=== PATIENT | male | born 1995 | race Caucasian/White ===

== ENCOUNTER 2021-05-06 13:48 | Emergency (ER) | payer BC, OTHER, SELFPAY ==
[~2021-05-06] VITALS: Ht 167.6 cm; Wt 62.8 kg
[2021-05-06] MEDS ORDERED: LORazepam 2 MG/ML VIAL IV STA (14:00)
[2021-05-06] MEDS ORDERED: LORazepam 2 MG/ML VIAL As Ordered ONE (14:02)
[2021-05-06 18:59] VITALS: BP 116/89
== END 2021-05-06 19:00 | disposition home or self-care (01) ==
LOC: M ED 13:48
DX: F19.10 Other psychoactive substance abuse, uncomplicated (principal); F17.200 Nicotine dependence, unspecified, uncomplicated
CPT/HCPCS: 96374; 99284; J2060

== ENCOUNTER 2022-04-14 | Emergency (ER) | payer OTHER ==
[~2022-04-14] VITALS: Ht 172.7 cm; Wt 78.5 kg
[2022-04-14] MEDS ORDERED: NS 1,000 ML IV ONE (00:10)
[2022-04-14 00:31] LABS: BASO % 0.3 % (0.0-1.0); EOS # 0.1 10^3/uL (0.0-0.5); EOS % 1.5 % (0.0-3.0); HEMATOCRIT 39.2 % (42.0-52.0); HEMOGLOBIN 13.6 g/dl (13.5-17.5); LYMPH % 32.4 % (24.0-44.0); MEAN CORPUSCULAR HGB CONC 34.7 g/dl (32.0-36.5); MEAN CORPUSCULAR VOLUME 89.3 fl (80.0-96.0); MONO # 0.8 10^3/uL (0.0-0.8); MONO % 9.2 % (2.0-8.0); NEUTROPHILS # 5.2 10^3/uL (1.5-8.5); NEUTROPHILS % 56.2 % (36.0-66.0); PLATELET COUNT, AUTOMATED 298 10^3/uL (150-450); RED BLOOD COUNT 4.39 10^6/uL (4.30-6.10); WHITE BLOOD COUNT 9.2 10^3/uL (4.0-10.0)
[2022-04-14 00:56] LABS: ALBUMIN 3.7 GM/DL (3.2-5.2); ALT/SGPT 57 U/L (12-78); BILIRUBIN,DIRECT 0.2 MG/DL (0.0-0.2); BILIRUBIN,TOTAL 0.4 MG/DL (0.2-1.0); BLOOD UREA NITROGEN 15 MG/DL (7-18); CALCIUM LEVEL 8.4 MG/DL (8.5-10.1); CARBON DIOXIDE LEVEL 28 MEQ/L (21-32); CHLORIDE LEVEL 102 MEQ/L (98-107); CREATININE FOR GFR 1.18 MG/DL (0.70-1.30); ETHYL ALCOHOL (ETHANOL) < 0.003 % (0.000-0.010); GLOMERULAR FILTRATION RATE > 60.0 (>60); GLUCOSE, FASTING 99 MG/DL (70-100); POTASSIUM SERUM 3.3 MEQ/L (3.5-5.1); SALICYLATE LEVEL < 1.7 MG/DL (5.0-30.0); SODIUM LEVEL 138 MEQ/L (136-145); TOTAL PROTEIN 6.8 GM/DL (6.4-8.2)
[2022-04-14 03:37] LABS: AMPHETAMINES LEVEL URINE POSITIVE (NEGATIVE); BARBITURATES URINE NEGATIVE (NEGATIVE); BENZODIAZEPINES URINE NEGATIVE (NEGATIVE); CANNABINOIDS URINE NEGATIVE (NEGATIVE); COCAINE METABOLITE URINE NEGATIVE (NEGATIVE); METHADONE URINE NEGATIVE (NEGATIVE); OPIATES URINE NEGATIVE (NEGATIVE); PHENCYCLIDINE URINE NEGATIVE (NEGATIVE)
[2022-04-14 06:27] VITALS: BP 158/72
== END 2022-04-14 06:30 | disposition home or self-care (01) ==
LOC: M ED → EDBD → M ED 06:30
DX: T50.901A Poisoning by unspecified drugs, medicaments and biological substances, accidental (unintentional), initial encounter (principal); F19.10 Other psychoactive substance abuse, uncomplicated; F17.200 Nicotine dependence, unspecified, uncomplicated

== ENCOUNTER 2022-04-30 00:37 | Emergency (ER) | payer OTHER ==
[~2022-04-30] VITALS: Ht 167.6 cm; Wt 73.9 kg
[2022-04-30 00:52] VITALS: BP 164/76
== END 2022-04-30 03:05 | disposition left against medical advice (07) ==
LOC: M ED 00:37
DX: Z53.21 Procedure and treatment not carried out due to patient leaving prior to being seen by health care provider (principal)

== ENCOUNTER → 2022-05-08 | Outpatient (CLI) | payer OTHER ==
[2022-05-08 19:25] LABS: HEMOGLOBIN 14.3 g/dl (13.5-17.5); MEAN CORPUSCULAR HEMOGLOBIN 31.2 pg (27.0-33.0); MEAN CORPUSCULAR HGB CONC 33.3 g/dl (32.0-36.5); MEAN CORPUSCULAR VOLUME 93.7 fl (80.0-96.0); PLATELET COUNT, AUTOMATED 280 10^3/uL (150-450); RED BLOOD COUNT 4.59 10^6/uL (4.30-6.10); WHITE BLOOD COUNT 7.7 10^3/uL (4.0-10.0)
[2022-05-08 19:54] LABS: ALBUMIN 3.5 GM/DL (3.2-5.2); ALT/SGPT 131 U/L (12-78); BILIRUBIN,TOTAL 0.2 MG/DL (0.2-1.0); BLOOD UREA NITROGEN 9 MG/DL (7-18); CALCIUM LEVEL 9.3 MG/DL (8.5-10.1); CARBON DIOXIDE LEVEL 25 MEQ/L (21-32); CHLORIDE LEVEL 109 MEQ/L (98-107); GLOMERULAR FILTRATION RATE > 60.0 (>60); GLUCOSE, FASTING 103 MG/DL (70-100); POTASSIUM SERUM 4.2 MEQ/L (3.5-5.1); SODIUM LEVEL 141 MEQ/L (136-145); TOTAL PROTEIN 6.8 GM/DL (6.4-8.2)
[2022-05-08 20:20] LABS: HEPATITIS B SURFACE ANTIGEN NEGATIVE (NEGATIVE)
[2022-05-08 20:48] LABS: HIV 1&2 SCREEN CENTAUR NEGATIVE (NEGATIVE)
[2022-05-08 20:57] LABS: HEPATITIS C VIRUS ABY INDEX > 11.0 INDEX (<0.8)
[2022-05-08 20:58] LABS: GC DNA AMPLIFICATION NEGATIVE (NEGATIVE)
== END ==
LOC: M WUC 15:27
PROVIDERS: ATTEND Family Medicine
DX: F11.20 Opioid dependence, uncomplicated (principal)

== ENCOUNTER 2022-05-23 15:12 | Emergency (ER) | payer OTHER ==
[~2022-05-23] VITALS: Ht 167.6 cm; Wt 72.4 kg
[2022-05-23 15:12] VITALS: BP 137/92
== END 2022-05-23 17:03 | disposition home or self-care (01) ==
LOC: M ED 15:12
DX: F19.10 Other psychoactive substance abuse, uncomplicated (principal); Z79.899 Other long term (current) drug therapy; F41.9 Anxiety disorder, unspecified; F32.9 Major depressive disorder, single episode, unspecified; F17.200 Nicotine dependence, unspecified, uncomplicated

== ENCOUNTER → 2022-07-12 | Outpatient (CLI) | payer OTHER | LOC: M LAB 10:07 | PROVIDERS: ATTEND Family Medicine | DX: F11.20 Opioid dependence, uncomplicated (principal) ==

== ENCOUNTER 2022-07-13 13:26 | Emergency (ER) | payer OTHER ==
[~2022-07-13] VITALS: Ht 167.6 cm; Wt 64.0 kg
[2022-07-13 13:26] VITALS: BP 127/81
[2022-07-13 15:03] LABS: BASO % 0.4 % (0.0-1.0); EOS # 0.1 10^3/uL (0.0-0.5); EOS % 0.6 % (0.0-3.0); HEMATOCRIT 48.3 % (42.0-52.0); HEMOGLOBIN 16.6 g/dl (13.5-17.5); LYMPH # 1.9 10^3/uL (1.5-5.0); LYMPH % 22.7 % (24.0-44.0); MEAN CORPUSCULAR HGB CONC 34.4 g/dl (32.0-36.5); MEAN CORPUSCULAR VOLUME 90.3 fl (80.0-96.0); MONO # 0.4 10^3/uL (0.0-0.8); MONO % 5.4 % (2.0-8.0); NEUTROPHILS # 5.8 10^3/uL (1.5-8.5); NEUTROPHILS % 70.7 % (36.0-66.0); PLATELET COUNT, AUTOMATED 402 10^3/uL (150-450); RED BLOOD COUNT 5.35 10^6/uL (4.30-6.10); WHITE BLOOD COUNT 8.2 10^3/uL (4.0-10.0)
[2022-07-13 15:34] LABS: ALBUMIN 4.2 GM/DL (3.2-5.2); ALT/SGPT 42 U/L (12-78); BILIRUBIN,DIRECT 0.2 MG/DL (0.0-0.2); BILIRUBIN,TOTAL 0.6 MG/DL (0.2-1.0); BLOOD UREA NITROGEN 6 MG/DL (7-18); CALCIUM LEVEL 9.9 MG/DL (8.5-10.1); CARBON DIOXIDE LEVEL 27 MEQ/L (21-32); CHLORIDE LEVEL 107 MEQ/L (98-107); CREATININE FOR GFR 0.92 MG/DL (0.70-1.30); GLOMERULAR FILTRATION RATE > 60.0 (>60); GLUCOSE, FASTING 87 MG/DL (70-100); LIPASE 101 U/L (73-393); POTASSIUM SERUM 4.3 MEQ/L (3.5-5.1); SODIUM LEVEL 139 MEQ/L (136-145); TOTAL PROTEIN 7.9 GM/DL (6.4-8.2)
== END 2022-07-13 15:16 | disposition left against medical advice (07) ==
LOC: M ED 13:26
DX: Z53.21 Procedure and treatment not carried out due to patient leaving prior to being seen by health care provider (principal)

== ENCOUNTER 2022-10-07 16:09 | Inpatient (IN) | payer OTHER ==
[~2022-10-07] VITALS: Ht 162.6 cm; Wt 60.6 kg
[2022-10-07 17:58] LABS: HEMATOCRIT 46.2 % (42.0-52.0); HEMOGLOBIN 15.9 g/dl (13.5-17.5); MEAN CORPUSCULAR HEMOGLOBIN 30.7 pg (27.0-33.0); MEAN CORPUSCULAR HGB CONC 34.4 g/dl (32.0-36.5); MEAN CORPUSCULAR VOLUME 89.2 fl (80.0-96.0); PLATELET COUNT, AUTOMATED 381 10^3/uL (150-450); RED BLOOD COUNT 5.18 10^6/uL (4.30-6.10); WHITE BLOOD COUNT 11.4 10^3/uL (4.0-10.0)
[2022-10-07 18:28] LABS: ETHYL ALCOHOL (ETHANOL) 0.003 % (0.000-0.010)
[2022-10-07 18:30] LABS: ACETAMINOPHEN LEVEL < 2.0 UG/ML (10.0-20.0); ALBUMIN 4.4 G/DL (3.2-5.2); ALKALINE PHOSPHATASE 108 U/L (46-116); ALT/SGPT 44 U/L (7.0-40); AST/SGOT 41 U/L (<34); BILIRUBIN,DIRECT 0.2 MG/DL (<0.4); BILIRUBIN,TOTAL 0.5 MG/DL (0.3-1.2); BLOOD UREA NITROGEN 7 MG/DL (9-23); CALCIUM LEVEL 10.2 MG/DL (8.5-10.1); CARBON DIOXIDE LEVEL 26 MMOL/L (20-31); CHLORIDE LEVEL 103 MMOL/L (98-107); CREATININE FOR GFR 0.83 MG/DL (0.70-1.30); GLOMERULAR FILTRATION RATE > 60.0 (>60); GLUCOSE, FASTING 60 MG/DL (60-100); POTASSIUM SERUM 4.4 MMOL/L (3.5-5.1); SALICYLATE LEVEL < 3.0 MG/DL (<30); SODIUM LEVEL 137 MMOL/L (136-145); TOTAL PROTEIN 7.9 G/DL (5.7-8.2)
[2022-10-07 18:32] LABS: THYROID STIMULATING HORMONE 1.163 uIU/ML (0.55-4.78)
[2022-10-07] MEDS ORDERED: HOME MED LIST COMPLETE! XX SCH (18:40)
[2022-10-07 19:09] LABS: AMPHETAMINES LEVEL URINE NEGATIVE (NEGATIVE); BARBITURATES URINE NEGATIVE (NEGATIVE); BENZODIAZEPINES URINE NEGATIVE (NEGATIVE); COCAINE METABOLITE URINE NEGATIVE (NEGATIVE); METHADONE URINE NEGATIVE (NEGATIVE); OPIATES URINE NEGATIVE (NEGATIVE); PHENCYCLIDINE URINE NEGATIVE (NEGATIVE)
[2022-10-07 19:16] LABS: CANNABINOIDS URINE POSITIVE (NEGATIVE)
[2022-10-07 19:41] LABS: RSV AMPLIFICATION NEGATIVE (NEGATIVE)
[2022-10-08] MEDS ORDERED: NICOTINE 21MG/24HR 1 EA TRANSDERMAL TD SCH (09:00)
[2022-10-08] MEDS ORDERED: IBUPROFEN 400MG TAB PO PRN (09:35)
[2022-10-08] MEDS ORDERED: traZODone 50 MG TAB PO PRN (09:35)
[2022-10-08] MEDS ORDERED: MOM 30ML SUSPENSION UDC PO PRN (09:35)
[2022-10-08] MEDS ORDERED: MAALOX 30 ML SUSP *UDC PO PRN (09:35)
[2022-10-08 13:33] VITALS: BP 112/68
[2022-10-08] MEDS: NICOTINE POLACRILEX 2 MG GUM PO PRN ×2 (14:37→18:44)
[2022-10-09 06:11] VITALS: BP 105/71
[2022-10-09] MEDS: NICOTINE POLACRILEX 2 MG GUM PO PRN ×2 (07:38→11:03)
[2022-10-09] MEDS ORDERED: INFLUENZA QUADRIVALENT PF VACCINE 0.5ML SYRINGE IM.IMMUN ONE (09:00)
[2022-10-09] MEDS: OLANZapine 5 MG TAB PO SCH (09:32)
[2022-10-09 18:00] VITALS: BP 139/55
[2022-10-10 06:37] VITALS: BP 117/77
[2022-10-10] MEDS: OLANZapine 5 MG TAB PO SCH (10:02)
[2022-10-10] MEDS: NICOTINE POLACRILEX 2 MG GUM PO PRN (10:45)
[2022-10-10] MEDS: LORazepam 1 MG TAB PO PRN (16:33)
[2022-10-10 17:07] VITALS: BP 111/64
[2022-10-11 06:30] VITALS: BP 112/58
[2022-10-11] MEDS: OLANZapine 5 MG TAB PO SCH (09:08)
[2022-10-11] MEDS: NICOTINE POLACRILEX 2 MG GUM PO PRN ×2 (10:09→15:05)
[2022-10-11] MEDS: LORazepam 1 MG TAB PO PRN ×2 (11:26→18:07)
[2022-10-11 14:57] VITALS: BP 112/66
[2022-10-12 07:10] VITALS: BP 135/69
[2022-10-12] MEDS: OLANZapine 5 MG TAB PO SCH (09:30)
[2022-10-12] MEDS: NICOTINE POLACRILEX 2 MG GUM PO PRN ×2 (09:48→17:22)
[2022-10-12] MEDS: LORazepam 1 MG TAB PO PRN ×2 (11:24→20:33)
[2022-10-12 19:00] VITALS: BP 126/78
[2022-10-13 06:56] VITALS: BP 118/65
[2022-10-13] MEDS: OLANZapine 5 MG TAB PO SCH (07:48)
[2022-10-13] MEDS: NICOTINE POLACRILEX 2 MG GUM PO PRN ×2 (07:48→11:42)
[2022-10-13] MEDS ORDERED: OLAN1TAB16 PO (09:46)
[2022-10-13] MEDS ORDERED: NICO2GUM PO (09:46)
== END 2022-10-13 11:41 | disposition home or self-care (01) | DRG 751 ==
LOC: M ED 16:09 → M ED INP 10-08 09:34 → M PSY 10-08 13:28
PROVIDERS: ADMIT Student in an Organized Health Care Education/Training Program; ATTEND Psychiatry & Neurology Psychiatry
DX: F29 Unspecified psychosis not due to a substance or known physiological condition (principal); R45.851 Suicidal ideations; F12.90 Cannabis use, unspecified, uncomplicated; F17.200 Nicotine dependence, unspecified, uncomplicated

== ENCOUNTER 2023-02-02 15:13 | Emergency (ER) | payer OTHER ==
[~2023-02-02] VITALS: Ht 167.6 cm; Wt 68.2 kg
[~2023-02-02 15:13] MED LIST: NICO2GUM PO; OLAN1TAB16 PO
[2023-02-02 20:15] VITALS: BP 147/97
== END 2023-02-02 20:41 | disposition home or self-care (01) ==
LOC: M ED 15:13 → EDBD 15:13 → M ED 20:41
DX: F19.10 Other psychoactive substance abuse, uncomplicated (principal); F32.9 Major depressive disorder, single episode, unspecified; F17.200 Nicotine dependence, unspecified, uncomplicated; F12.10 Cannabis abuse, uncomplicated

== ENCOUNTER → 2023-02-19 | Outpatient (CLI) | payer OTHER ==
[2023-02-19 12:43] LABS: HEMATOCRIT 45.5 % (42.0-52.0); HEMOGLOBIN 15.5 g/dl (13.5-17.5); MEAN CORPUSCULAR HEMOGLOBIN 31.6 pg (27.0-33.0); MEAN CORPUSCULAR HGB CONC 34.1 g/dl (32.0-36.5); MEAN CORPUSCULAR VOLUME 92.9 fl (80.0-96.0); PLATELET COUNT, AUTOMATED 274 10^3/uL (150-450); WHITE BLOOD COUNT 6.7 10^3/uL (4.0-10.0)
[2023-02-19 13:20] LABS: ALBUMIN 4.1 G/DL (3.2-5.2); ALKALINE PHOSPHATASE 96 U/L (46-116); ALT/SGPT 60 U/L (7.0-40); AST/SGOT 14 U/L (<34); BILIRUBIN,TOTAL 0.6 MG/DL (0.3-1.2); BLOOD UREA NITROGEN 16 MG/DL (9-23); CALCIUM LEVEL 9.8 MG/DL (8.5-10.1); CARBON DIOXIDE LEVEL 31 MMOL/L (20-31); CHLORIDE LEVEL 103 MMOL/L (98-107); CREATININE FOR GFR 0.82 MG/DL (0.70-1.30); GLOMERULAR FILTRATION RATE > 60.0 (>60); GLUCOSE, FASTING 80 MG/DL (60-100); POTASSIUM SERUM 4.2 MMOL/L (3.5-5.1); SODIUM LEVEL 140 MMOL/L (136-145); TOTAL PROTEIN 7.1 G/DL (5.7-8.2)
[2023-02-19 13:33] LABS: HEPATITIS B SURFACE ANTIGEN NEGATIVE (NEGATIVE)
[2023-02-19 13:46] LABS: HIV 1&2 SCREEN CENTAUR NEGATIVE (NEGATIVE)
[2023-02-19 14:08] LABS: HEPATITIS C VIRUS ABY INDEX > 11.0 INDEX (<0.8)
[2023-02-19 14:22] LABS: GC DNA AMPLIFICATION NEGATIVE (NEGATIVE)
== END ==
LOC: M WUC 10:33
PROVIDERS: ATTEND Family Medicine
DX: F11.20 Opioid dependence, uncomplicated (principal)

== ENCOUNTER 2024-12-17 03:35 | Emergency (ER) | payer OTHER, SELFPAY ==
[~2024-12-17] VITALS: Ht 167.6 cm; Wt 78.6 kg
[2024-12-17] MEDS ORDERED: BUPR1SUB5 (03:46)
[2024-12-17 07:49] VITALS: BP 154/86; TEMP 98; O2SAT 95
[2024-12-17 09:35] LABS: HEMATOCRIT 40.6 % (42.0-52.0); HEMOGLOBIN 14.1 g/dl (13.5-17.5); MEAN CORPUSCULAR HEMOGLOBIN 30.3 pg (27.0-33.0); MEAN CORPUSCULAR HGB CONC 34.7 g/dl (32.0-36.5); MEAN CORPUSCULAR VOLUME 87.1 fl (80.0-96.0); PLATELET COUNT, AUTOMATED 335 10^3/uL (150-450); RED BLOOD COUNT 4.66 10^6/uL (4.30-6.10); WHITE BLOOD COUNT 10.7 10^3/uL (4.0-10.0)
[2024-12-17 09:47] LABS: ETHYL ALCOHOL (ETHANOL) 0.004 % (0.000-0.010)
[2024-12-17 09:49] LABS: ALBUMIN 4.3 G/DL (3.2-5.2); ALKALINE PHOSPHATASE 104 U/L (40-129); ALT/SGPT 51 U/L (7.0-40); AST/SGOT 115 U/L (<34); BILIRUBIN,DIRECT 0.3 MG/DL (<0.4); BILIRUBIN,TOTAL 0.9 MG/DL (0.3-1.2); BLOOD UREA NITROGEN 15 MG/DL (9-23); CALCIUM LEVEL 9.5 MG/DL (8.5-10.1); CARBON DIOXIDE LEVEL 23 MMOL/L (20-31); CHLORIDE LEVEL 103 MMOL/L (98-107); CREATININE FOR GFR 0.92 MG/DL (0.70-1.30); GLOMERULAR FILTRATION RATE > 60.0 (>60); GLUCOSE, FASTING 83 MG/DL (60-100); POTASSIUM SERUM 4.3 MMOL/L (3.5-5.1); SALICYLATE LEVEL < 3.0 MG/DL (<30); SODIUM LEVEL 138 MMOL/L (136-145); TOTAL PROTEIN 7.3 G/DL (5.7-8.2)
[2024-12-17 09:51] LABS: THYROID STIMULATING HORMONE 1.548 uIU/ML (0.55-4.78)
[2024-12-17] MEDS: LIDOCAINE 2% 5ML JELLY UROJET TOP ONE (10:20)
[2024-12-17 11:15] LABS: BARBITURATES URINE NEGATIVE (NEGATIVE); BENZODIAZEPINES URINE NEGATIVE (NEGATIVE); METHADONE URINE NEGATIVE (NEGATIVE); OPIATES URINE NEGATIVE (NEGATIVE); PHENCYCLIDINE URINE NEGATIVE (NEGATIVE)
[2024-12-17 11:17] LABS: AMPHETAMINES LEVEL URINE POSITIVE (NEGATIVE); CANNABINOIDS URINE POSITIVE (NEGATIVE); COCAINE METABOLITE URINE POSITIVE (NEGATIVE)
[2024-12-17] MEDS ORDERED: LORazepam 1 MG TAB PO ONE (13:25)
== END 2024-12-17 14:03 | disposition home or self-care (01) ==
LOC: M ED 03:35
DX: F14.10 Cocaine abuse, uncomplicated (principal); F15.10 Other stimulant abuse, uncomplicated; F17.200 Nicotine dependence, unspecified, uncomplicated

== ENCOUNTER 2025-05-11 22:37 | Emergency (ER) | payer OTHER, SELFPAY ==
[~2025-05-11] VITALS: Ht 170.2 cm; Wt 62.2 kg
[~2025-05-11 22:37] MED LIST changes: +BUPR1SUB5
[2025-05-12 01:20] LABS: PLATELET COUNT, AUTOMATED 361 10^3/uL (150-450)
[2025-05-12 01:48] LABS: ETHYL ALCOHOL (ETHANOL) 0.007 % (0.000-0.010)
[2025-05-12 01:50] LABS: ALT/SGPT 18 U/L (7.0-40); AST/SGOT 29 U/L (<34); CALCIUM LEVEL 9.3 MG/DL (8.5-10.1); CARBON DIOXIDE LEVEL 28 MMOL/L (20-31); CHLORIDE LEVEL 105 MMOL/L (98-107); CREATININE FOR GFR 0.76 MG/DL (0.70-1.30); GLOMERULAR FILTRATION RATE > 90.0 (>60); POTASSIUM SERUM 4.2 MMOL/L (3.5-5.1); SALICYLATE LEVEL < 3.0 MG/DL (<30); SODIUM LEVEL 143 MMOL/L (136-145)
[2025-05-12 03:00] VITALS: BP 108/73; TEMP 97; O2SAT 98
== END 2025-05-12 03:02 | disposition home or self-care (01) ==
LOC: M ED 22:37
DX: F10.20 Alcohol dependence, uncomplicated (principal); F19.10 Other psychoactive substance abuse, uncomplicated; Z79.899 Other long term (current) drug therapy